=== PATIENT | female | born 1995 | race Caucasian/White ===

== ENCOUNTER 2018-07-08 19:18 | Outpatient (CLI) | payer MEDICAID ==
[2018-07-08 20:39] LABS: ADD UMIC NO; UR ASCORBIC ACID NEGATIVE (NEGATIVE); UR BILIRUBIN (Dip) NEGATIVE (NEGATIVE); UR BLOOD (Dip) NEGATIVE (NEGATIVE); UR CLARITY CLEAR (CLEAR); UR COLOR YELLOW (YELLOW); UR GLUCOSE (Dip) NEGATIVE (NEGATIVE); UR KETONES (Dip) NEGATIVE (NEGATIVE); UR LEUKOCYTE ESTERASE (Dip) NEGATIVE Leu/ul (NEGATIVE); UR NITRITE (Dip) NEGATIVE (NEGATIVE); UR SPECIFIC GRAVITY (Dip) 1.018 (1.003-1.030); UR TOTAL PROTEIN (Dip) NEGATIVE (NEGATIVE); UR UROBILINOGEN (Dip) 1+ mg/dL (NEGATIVE)
[2018-07-08 20:39] LABS: RUPTURE FETAL MEMBRANES NEGATIVE (NEGATIVE)
[2018-07-08] MEDS: ACETAMINOPHEN 500 MG TAB PO (21:32)
== END 2018-07-08 23:00 | disposition home or self-care (01) ==
LOC: OBT 19:18 → L-D 19:20 → OBT 23:00
DX: O26.892 Other specified pregnancy related conditions, second trimester (principal); Z3A.28 28 weeks gestation of pregnancy; R10.2 Pelvic and perineal pain
CPT/HCPCS: 76817; 76818; 81003; 84112

== ENCOUNTER 2018-09-16 10:10 | Outpatient (CLI) | payer MEDICAID ==
[2018-09-16] MEDS ORDERED: ONDANSETRON 4 MG INJ (11:07)
[2018-09-16 11:47] LABS: ADD MAN DIFF? NO
[2018-09-16 11:53] LABS: BASOPHILS % 0.2 % (0.0-2.0); HEMOGLOBIN 9.2 g/dl (12.0-16.0); LYMPHOCYTES # 0.7 10^3/ul (0.8-2.9); LYMPHOCYTES % 7.7 % (15.0-51.0); MEAN CORPUSCULAR HEMOGLOBIN 22.8 pg (29.0-33.0); MEAN CORPUSCULAR HGB CONC 30.7 g/dl (32.0-37.0); MEAN CORPUSCULAR VOLUME 74.4 fl (82.0-101.0); MONOCYTE # 0.4 10^3/ul (0.3-0.9); MONOCYTES % 4.2 % (0.0-11.0); NEUTROPHILS % 86.8 % (39.0-77.0); PLATELET COUNT 208 10^3/UL (140-415); RED BLOOD COUNT 4.03 10^6/ul (4.20-5.40); RED CELL DISTRIBUTION WIDTH 14.8 % (11.5-14.5)
[2018-09-16 11:53] LABS: WHITE BLOOD COUNT 9.3 10^3/ul (4.8-10.8)
[2018-09-16 12:11] LABS: ALANINE AMINOTRANSFERASE 9 IU/L (13-69); ALBUMIN 3.4 g/dl (3.3-4.9); ALBUMIN/GLOBULIN RATIO 0.97; ALKALINE PHOSPHATASE 310 IU/L (42-121); ANION GAP 14 (5-13); ASPARTATE AMINO TRANSFERASE 18 IU/L (15-46); BILIRUBIN,INDIRECT 0.8 mg/dl (0-1.1); BILIRUBIN,TOTAL 0.8 mg/dl (0.2-1.3); BLOOD UREA NITROGEN 11 mg/dl (7-20); CALCIUM 8.7 mg/dl (8.4-10.2); CARBON DIOXIDE 19 mmol/L (21-31); CHLORIDE 105 mmol/L (97-110); CREATININE 0.38 mg/dl (0.44-1.00); Estimated GFR > 60 mL/min (>60); GLUCOSE 101 mg/dl (70-220); POTASSIUM 3.7 mmol/L (3.5-5.1); SODIUM 138 mmol/L (135-144); TOTAL PROTEIN 6.9 g/dl (6.1-8.1)
[2018-09-16] MEDS: LACTATED RINGER'S 1,000 ML IV ×2 (12:30→12:32)
[2018-09-16] MEDS: ONDANSETRON 4 MG INJ IV (12:31)
== END 2018-09-16 14:00 | disposition home or self-care (01) ==
LOC: OBT 10:10 → L-D 10:10 → OBT 14:00
DX: O21.0 Mild hyperemesis gravidarum (principal); Z3A.38 38 weeks gestation of pregnancy
CPT/HCPCS: 36415; 80053; 85025; 96360; 96361

== ENCOUNTER 2018-09-23 10:03 | Inpatient (IN) | payer MEDICAID ==
[2018-09-23] MEDS ORDERED: METHYLERGONOVINE 0.2 MG INJ IM (12:00)
[2018-09-23] MEDS ORDERED: CARBOPROST 250 MCG INJ IM (12:00)
[2018-09-23] MEDS ORDERED: LIDOCAINE 1% (MPF) 30 ML INJ INJ (12:00)
[2018-09-23] MEDS ORDERED: MISOPROSTOL 200 MCG TAB PR (12:00)
[2018-09-23] MEDS ORDERED: OXYTOCIN 30 UNITS/LR 500 ML IV (12:00)
[2018-09-23] MEDS: LACTATED RINGER'S 1,000 ML IV ×3 (12:33→18:27)
[2018-09-23] MEDS: MISOPROSTOL 50 MCG CAPSULE PO (12:33)
[2018-09-23 12:43] LABS: ADD MAN DIFF? NO
[2018-09-23 12:45] LABS: BASOPHILS % 0.5 % (0.0-2.0); EOSINOPHILS # 0.1 10^3/ul (0.0-0.5); EOSINOPHILS % 0.9 % (0.0-7.0); HEMATOCRIT 29.1 % (37.0-47.0); HEMOGLOBIN 9.2 g/dl (12.0-16.0); LYMPHOCYTES # 1.9 10^3/ul (0.8-2.9); LYMPHOCYTES % 24.3 % (15.0-51.0); MEAN CORPUSCULAR HEMOGLOBIN 22.9 pg (29.0-33.0); MEAN CORPUSCULAR HGB CONC 31.6 g/dl (32.0-37.0); MEAN CORPUSCULAR VOLUME 72.4 fl (82.0-101.0); MEAN PLATELET VOLUME 11.4 fl (7.4-10.4); MONOCYTE # 0.6 10^3/ul (0.3-0.9); NEUTROPHIL # 5.2 10^3/ul (1.6-7.5); NEUTROPHILS % 66.3 % (39.0-77.0); PLATELET COUNT 235 10^3/UL (140-415); RED BLOOD COUNT 4.02 10^6/ul (4.20-5.40)
[2018-09-23 12:45] LABS: WHITE BLOOD COUNT 7.8 10^3/ul (4.8-10.8)
[2018-09-23 13:04] LABS: INR 0.89; PROTIME 12.1 Sec (11.9-14.9); PT RATIO 0.9
[2018-09-23 13:05] LABS: PARTIAL THROMBOPLASTIN TIME 25.6 Sec (23.0-35.0)
[2018-09-23 15:15] LABS: RAPID PLASMA REAGIN NONREACTIVE (NR)
[2018-09-24] MEDS: LACTATED RINGER'S 1,000 ML IV ×3 (02:33→18:35)
[2018-09-24] MEDS: MISOPROSTOL 50 MCG CAPSULE PO (08:09)
[2018-09-24] MEDS: BUTORPHANOL 2 MG INJ IV ×2 (14:08→17:26)
[2018-09-25] MEDS ORDERED: MINERAL OIL LIGHT 10 ML VIAL TOP (00:30)
[2018-09-25] MEDS ORDERED: LIDOCAINE 1% (MPF) 30 ML INJ (01:15)
[2018-09-25] MEDS: OXYTOCIN 30 UNITS/LR 500 ML IV ×4 (01:27→23:16)
[2018-09-25] MEDS: DEXTROSE 5%-LR 1,000 ML IV ×2 (03:28→14:21)
[2018-09-25] MEDS: LACTATED RINGER'S 1,000 ML IV ×5 (03:30→11:00)
[2018-09-25] MEDS ORDERED: FENTAnyl 2MCG/ML-ROPIV 0.2% 100 ML (07:54)
[2018-09-25] MEDS ORDERED: NALOXONE (0.4 MG/ML) INJ IV (09:00)
[2018-09-25] MEDS: FENTAnyl 2MCG/ML-ROPIV 0.2% 100 ML BAG EPI ×2 (09:04→15:44)
[2018-09-25] MEDS ORDERED: ONDANSETRON 4 MG INJ IV (09:30)
[2018-09-25] MEDS: IBUPROFEN 600 MG TAB PO (18:29)
[2018-09-25] MEDS ORDERED: CARBOPROST 250 MCG INJ IM (20:00)
[2018-09-25] MEDS ORDERED: OXYCODONE/ASPIRIN (4.88/325) TAB PO (20:00)
[2018-09-25] MEDS ORDERED: ZOLPIDEM 5 MG TAB PO (20:00)
[2018-09-25] MEDS ORDERED: METHYLERGONOVINE 0.2 MG INJ IM (20:00)
[2018-09-25] MEDS ORDERED: MISOPROSTOL 200 MCG TAB PR (20:00)
[2018-09-25] MEDS: SENNA/DOCUSATE NA (8.6MG/50MG) TAB PO (20:12)
[2018-09-25] MEDS: LANOLIN HPA 1 PKT TOP (20:15)
[2018-09-25] MEDS: OXYCODONE/ASPIRIN (4.88/325) TAB PO (20:16)
[2018-09-25] MEDS: WITCH HAZEL/GLYCERIN PAD PR (20:17)
[2018-09-25] MEDS: BENZOCAINE 20% 56 ML SPRAY TOP (20:18)
[2018-09-26] MEDS: IBUPROFEN 600 MG TAB PO ×5 (00:09→23:31)
[2018-09-26] MEDS: OXYCODONE/ASPIRIN (4.88/325) TAB PO (02:22)
[2018-09-26 08:52] LABS: ADD MAN DIFF? NO
[2018-09-26] MEDS: DIPHTH/TET/ACEL PERTUSS (ADULT) 0.5 ML VIAL IM* (09:12)
[2018-09-26 09:26] LABS: BASOPHIL # 0.1 10^3/ul (0.0-0.1); BASOPHILS % 0.5 % (0.0-2.0); EOSINOPHILS # 0.1 10^3/ul (0.0-0.5); EOSINOPHILS % 0.8 % (0.0-7.0); HEMATOCRIT 25.4 % (37.0-47.0); LYMPHOCYTES # 2.5 10^3/ul (0.8-2.9); MEAN CORPUSCULAR HEMOGLOBIN 22.7 pg (29.0-33.0); MEAN CORPUSCULAR HGB CONC 31.5 g/dl (32.0-37.0); MEAN CORPUSCULAR VOLUME 72.2 fl (82.0-101.0); MEAN PLATELET VOLUME 11.2 fl (7.4-10.4); MONOCYTE # 1.2 10^3/ul (0.3-0.9); MONOCYTES % 7.3 % (0.0-11.0); NEUTROPHIL # 12.9 10^3/ul (1.6-7.5); NEUTROPHILS % 75.9 % (39.0-77.0); PLATELET COUNT 225 10^3/UL (140-415); RED BLOOD COUNT 3.52 10^6/ul (4.20-5.40); RED CELL DISTRIBUTION WIDTH 15.6 % (11.5-14.5)
[2018-09-26] MEDS: SENNA/DOCUSATE NA (8.6MG/50MG) TAB PO ×2 (10:05→20:34)
[2018-09-27] MEDS: IBUPROFEN 600 MG TAB PO ×2 (05:35→11:24)
[2018-09-27] MEDS: OXYCODONE/ASPIRIN (4.88/325) TAB PO ×2 (06:51→12:13)
[2018-09-27] MEDS: SENNA/DOCUSATE NA (8.6MG/50MG) TAB PO (09:06)
== END 2018-09-27 14:30 | disposition home or self-care (01) | DRG 807 ==
LOC: OBT 10:03 → L-D 10:03 → PP1 09-25 19:37 → OBT 11:35 → L-D 11:30
PROVIDERS: Obstetrics & Gynecology
PROC: 10E0XZZ Delivery of Products of Conception, External Approach (ICD-10-PCS; principal; 2018-09-25)
DX: O69.81X0 Labor and delivery complicated by cord around neck, without compression, not applicable or unspecified (principal); Z37.0 Single live birth; Z3A.39 39 weeks gestation of pregnancy
CPT/HCPCS: 62319; 76815; 85025; 85610; 85730; 86592; 86900; 86901; 99464